=== PATIENT | female | born 1950 | race Caucasian/White ===

== ENCOUNTER 2016-03-28 13:29 | Outpatient (CLI) | payer OTHER ==
[~2016-03-28 13:29] MED LIST: ADDERALL XR20 MG PO; ALLEGRA ALLERG180 MG PO; AMLODIPINE BESY10 MG PO; ASPIRIN325 MG PO; Azelastine; CARBAMAZEPINE100 MG PO; CLONAZEPAM1 MG PO; DULERA1 AE1 IN; FLONASE0.05 %; Ipratropium Bromide; MULTIVITAMIN1 TAB PO; Magnesium; NEURONTIN300 MG PO; NITROSTAT0.4 MG SL; OMEGA 3-6-9 COMPLEX; PLAVIX75 MG PO; PROTONIX40 MG PO; SPIRIVA18 MCG INH; VENLAFAXINE HC150 M1 PO; VITAMIN D-31000 UNIT PO; XOPENEX HFA IN; ZANTAC300 MG PO; [UNRECOGNIZED DRUG - OTHER] PO
--- NOTE | 2016-03-28 14:53 | DIAGNOSTIC IMAGING REPORT ---
PROCEDURE: CT LOW-DOSE LUNG CA SCREENING CLINICAL INDICATION: TOBACCO ABUSE TECHNIQUE: Low-dose helical CT images of the lungs without contrast were obtained and reconstructed at 2.5 mm intervals. MIP reformations in coronal and sagittal planes were created. Radiation dose 1.37 mGy. COMPARISON: Oldest available comparison: Chest: LDCT in 03/30/2015 and abdominal ultrasound 08/28/2014 FINDINGS: NODULES: None OTHER LUNG FINDINGS: Mild emphysema. AIRWAY: Branches normally without narrowing or endobronchial nodule. PLEURA: No effusions, thickening, or pneumothorax. AORTA AND GREAT VESSELS: Normal caliber, mild atherosclerotic calcification. PULMONARY ARTERIES: Normal. . HEART AND PERICARDIUM: Normal size without effusion, thickening. Calcific atherosclerosis of the coronaries. LYMPH NODES: No enlarged nodes visible. THORACIC SPINE: No suspicious lesion. Mild degenerative changes. CHEST WALL: Normal. Bilateral breast implants. VISUALIZED UPPER ABDOMEN: Normal. 4 cm right renal upper pole cyst. IMPRESSION: 1. No evidence of pulmonary nodules 2. Mild emphysema 3. Category 1. Negative. Recommend annual screening with LDCT in [address] scans at this facility use dose modulation, iterative reconstruction, and/or weight-based dosing when appropriate to reduce radiation dose to as low as reasonably achievable.
== END 2016-03-28 23:00 ==
LOC: CT SRH 13:29
DX: J43.9 Emphysema, unspecified (principal); Z72.0 Tobacco use

== ENCOUNTER 2016-04-26 10:34 | Outpatient (CLI) | payer OTHER ==
--- NOTE | 2016-04-26 11:21 | DIAGNOSTIC IMAGING REPORT ---
PROCEDURE: CT SINUS/FACIAL BONES W/O CONT CLINICAL INDICATION: RECURRENT SINUSITIS TECHNIQUE: Noncontrast axial CT images through the sinuses. Coronal and sagittal reformations were created. COMPARISON: None. FINDINGS: The frontal sinuses are normally aerated. The outflow tracts are patent. Sphenoid sinuses and their outflow tracts are patent. There is mucoperiosteal thickening in both maxillary sinuses with fluid in the left maxillary sinus. The outflow tracts are patent. The nasal septum is midline without significant spurring. Nasal passages are patent with normal nasal turbinate morphology. No facial bone fractures. Temporomandibular joints are normally aligned. Bony orbits are intact. Orbital soft tissues appear normal. Facial soft tissues and visible glandular structures are symmetric. IMPRESSION: 1. Bilateral maxillary sinusitis. All CT scans at this facility use dose modulation, iterative reconstruction, and/or weight-based dosing when appropriate to reduce radiation dose to as low as reasonably achievable.
== END 2016-04-26 23:00 ==
LOC: CT SRH 10:34
DX: J32.0 Chronic maxillary sinusitis (principal)